=== PATIENT | female | born 1980 | race Caucasian/White ===

== ENCOUNTER → 2018-06-08 | Emergency (ER) | payer MEDICAID, MEDICARE ==
[~2018-06-08] VITALS: Ht 175.3 cm; Wt 81.6 kg
[~2018-06-08] MED LIST: AMOX-355 PO; BUPR150T6 PO; BUPR300T PO; CLON0.5T60 PO; CYCL10TA9 PO; GABA300T PO; HYDR-3062 PO; LVT.05T PO; OMEP20TA2 PO; OXYB5TAB9 PO; POTA10CA43 PO; RISP1TAB2 PO; TRAM50TA2 PO
[2018-06-08 12:20] LABS: BILIRUBIN,URINE NEGATIVE (NEGATIVE); CLARITY,URINE CLEAR; COLOR,URINE YELLOW; GLUCOSE, URINE (UA) NEGATIVE (NEGATIVE); KETONES,URINE NEGATIVE (NEGATIVE); LEUKOCYTE ESTERASE ,URINE NEGATIVE (NEGATIVE); NITRITE,URINE NEGATIVE (NEGATIVE); PROTEIN,URINE NEGATIVE (NEGATIVE); SQUAMOUS EPITHELIAL CELL,UR 0-2 /HPF; UROBILINOGEN,URINE 0.2 MG/DL (NORMAL)
[2018-06-08 12:28] LABS: HEMATOCRIT 43 % (35-52); HEMOGLOBIN 14.5 G/DL (11.5-16.0); LYMPHOCYTES % (AUTO) 26 % (12-44); MEAN CORPUSCULAR HEMOGLOBIN 34 PG (25-34); MEAN CORPUSCULAR HGB CONC 34 G/DL (32-36); MEAN CORPUSCULAR VOLUME 100 FL (80-99); MEAN PLATELET VOLUME 10.7 FL (7.4-10.4); MONOCYTES % (AUTO) 9 % (0-12); NEUTROPHILS % (AUTO) 60 % (42-75); PLATELET COUNT 232 10^3/uL (130-400); RED CELL DISTRIBUTION WIDTH 13.3 % (10.0-14.5); WHITE BLOOD COUNT 6.9 10^3/uL (4.3-11.0)
[2018-06-08 12:29] LABS: BASOPHILS # (AUTO) 0.1 10^3/uL (0.0-0.1); BASOPHILS % (AUTO) 1 % (0-10); EOSINOPHILS # (AUTO) 0.3 10^3/uL (0.0-0.3); EOSINOPHILS % (AUTO) 5 % (0-10); LYMPHOCYTES # (AUTO) 1.8 X 10^3 (1.0-4.0); MONOCYTES # (AUTO) 0.6 X 10^3 (0.0-1.0); NEUTROPHILS # (AUTO) 4.1 X 10^3 (1.8-7.8)
[2018-06-08 12:43] LABS: BENZODIAZEPINES SCREEN URINE NEGATIVE (NEGATIVE); COCAINE SCREEN URINE NEGATIVE (NEGATIVE)
[2018-06-08 12:44] LABS: AMPHETAMINE SCREEN, URINE POSITIVE (NEGATIVE); BARBITURATE SCREEN URINE NEGATIVE (NEGATIVE); CANNABINOID SCREEN, URINE POSITIVE (NEGATIVE); METHADONE STAT NEGATIVE (NEGATIVE); METHAMPHETAMINE SCREEN URINE S POSITIVE (NEGATIVE); OPIATE SCREEN URINE POSITIVE (NEGATIVE); OXYCODONE STAT NEGATIVE (NEGATIVE); PROPOXYPHENE STAT NEGATIVE (NEGATIVE); TRICYCLIC ANTIDEPRESSANTS SCRE NEGATIVE (NEGATIVE)
[2018-06-08 12:54] LABS: BUN/CREATININE RATIO 7; CALCIUM 9.1 MG/DL (8.5-10.1); CARBON DIOXIDE 31 MMOL/L (21-32); CHLORIDE 105 MMOL/L (98-107); CREATININE SERUM 0.91 MG/DL (0.60-1.30); GFR ESTIMATED > 60; GLUCOSE 77 MG/DL (70-105); SODIUM 141 MMOL/L (135-145)
[2018-06-08 12:55] LABS: ACETAMINOPHEN < 10 UG/ML (10-30); ALANINE AMINOTRANSFERASE 11 U/L (0-55); ALBUMIN 4.3 GM/DL (3.2-4.5); ALKALINE PHOSPHATASE 63 U/L (40-136); BILIRUBIN,TOTAL < 0.2 MG/DL (0.1-1.0); SALICYLATE < 0.3 MG/DL (5.0-20.0); TOTAL PROTEIN 7.4 GM/DL (6.4-8.2)
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
--- OUTSIDE RECORDS SUMMARY | 2018-06-08 13:55 | XMS REPORT | Continuity of Care Document ---
Author Author [facility] Organization [facility] Address Unknown Phone Unavailable Allergies Active Description Code Type Severity Reaction Onset Reported/Identified Relationship to Patient Clinical Status Yes No Known Drug Allergies [id number] Drug Allergy Unknown N/A 09/07/2013 Medications There is no data. Problems Date Dx Coded Attending Type Code Diagnosis Diagnosed By 09/14/2013 NARESH WELLINGTON MD Ot 470 09/14/2013 NARESH WELLINGTON MD Ot 478.0 Procedures There is no data. Results There is no data. Encounters ACCT No. Visit Date/Time Discharge Status Pt. Type Provider Facility Loc./Unit Complaint [id number] 09/14/2013 07:02:00 09/14/2013 12:35:00 DIS Outpatient NARESH WELLINGTON MD [facility] [id number] 09/07/2013 08:12:00 09/07/2013 23:59:59 CLS Outpatient
[2018-06-08 14:39] VITALS: BP 136/98
--- NOTE | 2018-06-08 14:41 | NUR ---
PT LEFT THE ED WITHOUT MAKING THE STAFF AWARE. KAYLA, HER BROTHER, WAS CALLED AND HE HAD PICKED HER UP AND TOOK HER HOME. HE STATES HE IS GOING TO STAY WITH HER AND KEEP HER SAFE. VERIFIED WITH TINO VILLEDA WELL MYSELF. JOSE BRUMFIELD SCREENER HERE AT THE TIME OF ELOPEMENT. BRISSA TALKING ON THE PHONE WITH KAYLA, HER BROTHER, AT THIS TIME.
== END | disposition home or self-care (01) ==
LOC: EDUNIT# 11:20 → ER FS 11:22
DX: F32.9 Major depressive disorder, single episode, unspecified (principal); F41.9 Anxiety disorder, unspecified; G40.909 Epilepsy, unspecified, not intractable, without status epilepticus; K21.9 Gastro-esophageal reflux disease without esophagitis; F60.9 Personality disorder, unspecified; F15.10 Other stimulant abuse, uncomplicated; F12.10 Cannabis abuse, uncomplicated; Z87.820 Personal history of traumatic brain injury
CPT/HCPCS: 36415; 80053; 80306; 80320; 80329; 81000; 85025; 93005

== ENCOUNTER 2018-08-30 14:01 | Observation (INO) | payer MEDICARE ==
[~2018-08-30] VITALS: Ht 175.3 cm; Wt 79.4 kg
[2018-08-30 14:30] LABS: WHITE BLOOD COUNT 4.4 10^3/uL (4.3-11.0)
[2018-08-30 14:31] LABS: BASOPHILS % (AUTO) 1 % (0-10); EOSINOPHILS % (AUTO) 3 % (0-10); HEMATOCRIT 43 % (35-52); HEMOGLOBIN 14.9 G/DL (11.5-16.0); LYMPHOCYTES # (AUTO) 1.5 X 10^3 (1.0-4.0); LYMPHOCYTES % (AUTO) 34 % (12-44); MEAN CORPUSCULAR HEMOGLOBIN 34 PG (25-34); MEAN CORPUSCULAR HGB CONC 35 G/DL (32-36); MEAN CORPUSCULAR VOLUME 97 FL (80-99); MEAN PLATELET VOLUME 11.3 FL (7.4-10.4); MONOCYTES % (AUTO) 9 % (0-12); NEUTROPHILS # (AUTO) 2.3 X 10^3 (1.8-7.8); NEUTROPHILS % (AUTO) 53 % (42-75); PLATELET COUNT 157 10^3/uL (130-400); RED CELL DISTRIBUTION WIDTH 12.6 % (10.0-14.5)
--- NOTE | 2018-08-30 14:31 | ED Psychosocial ---
General Chief Complaint: Overdose Stated Complaint: OVERDOSE Source: patient, EMS Exam Limitations: clinical condition History of Present Illness Date Seen by Provider: August 30, 2018 Time Seen by Provider: 14:27 Initial Comments This 38-year-old white female presents after an overdose of buspirone. Patient took approximately 80 for 5 mg tablets 1 hour prior to presentation emergency department. Although the patient is uncooperative she denies ingestion of other material. She denies other harm to self. The paramedics found no other empty pill bottles. They found no recreational drugs. They found no open liquor bottles. They noted no harm to self other than the ingestion. Patient has had similar presentations in the past. She suffered a previous TBI that may contribute to these presentations Allergies and Home Medications Allergies Coded Allergies: No Known Drug Allergies (Unverified , 09/07/13) Home Medications Bupropion Hcl 150 Mg Tab.sr.24h, 1 TAB PO DAILY, (Reported) Bupropion Hcl 300 Mg Tab.sr.24h, 1 TAB PO DAILY, (Reported) Clonazepam 0.5 Mg/Tab Tab.rapdis, 1 EACH PO HS, (Reported) Cyclobenzaprine Hcl 10 Mg Tablet, 1 EACH PO PRN PRN for PAIN, (Reported) Gabapentin 300 Mg Tablet, 1 EACH PO AM, (Reported) Gabapentin 300 Mg Tablet, 2 EACH PO PM, (Reported) Hydrocodone Bit/Acetaminophen 1 Each Tablet, 1-2 EACH PO Q4H PRN for PAIN Prescribed by: CARLA BLEVINS on 09/14/13 1110 Levothyroxine Sodium 50 Mcg Tablet, 1 EACH PO DAILY, (Reported) Omeprazole 20 Mg Tablet.dr, 20 MG PO BID, (Reported) Oxybutynin Chloride 5 Mg Tablet, 1 EACH PO BID, (Reported) Potassium Chloride 10 Meq Capsule.sa, 1 EACH PO DAILY WITH FOOD, (Reported) Risperidone 1 Mg Tablet, 1 MG PO DAILY, (Reported) Tramadol Hcl 50 Mg Tablet, 50 MG PO PRN PRN for PAIN, (Reported) Patient Home Medication List Home Medication List Reviewed: Yes Review of Systems Constitutional: no symptoms reported EENTM: no symptoms reported Respiratory: no symptoms reported Cardiovascular: no symptoms reported Gastrointestinal: no symptoms reported Genitourinary: no symptoms reported Musculoskeletal: no symptoms reported Skin: no symptoms reported Psychiatric/Neurological: No Symptoms Reported Past Gvygitd-Fzyhsf-Fylzcx Hx Past Med/Social Hx: Reviewed Nursing Past Med/Soc Hx Patient Social History Drug of Choice: METH AND MARIJUANA Type Used: Cigarettes 2nd Hand Smoke Exposure: Yes Recent Hopitalizations: No Immunizations Up To Date PED Vaccines UTD: No Date of Pneumonia Vaccine: Apr 12, 2010 Seasonal Allergies Seasonal Allergies: No Past Medical History Surgeries: No Respiratory: No Cardiac: No Neurological: Yes Seizure Disorder, Traumatic Brain Injury Genitourinary: Yes UTI-Chronic Gastrointestinal: Yes Gastroesophageal Reflux Musculoskeletal: Yes Fibromyalgia, Chronic Back Pain Endocrine: No HEENT: No Cancer: No Psychosocial: Yes Personality Disorder, Depression Integumentary: No Blood Disorders: No Adverse Reaction/Blood Tranf: No Physical Exam Capillary Refill : Height, Weight, BMI Height: 5'9.00" Weight: 180lbs. oz. 81.840942yo; BMI Method:Stated General Appearance: WD/WN, no apparent distress Neck: full range of motion, normal inspection Respiratory: lungs clear Cardiovascular: regular rate, rhythm Gastrointestinal: normal bowel sounds, non tender Extremities: normal range of motion, non-tender, normal inspection Neurologic/Psychiatric: no motor/sensory deficits, depressed affect Appearance/Memory: impaired insight Behavior/Eye Contact: cooperative, other (the patient is somnolent but easily roused and able to handle her own airway. Patient is able to offer limited but helpful history.) Thoughts/Hallucinations: no apparent hallucination Skin: normal color, warm/dry Progress/Results/Core Measures Results/Orders Lab Results Laboratory Tests Test 08/30/18 14:15 08/30/18 14:50 Range/Units White Blood Count 4.4 4.3-11.0 10^3/uL Red Blood Count 4.43 4.35-5.85 10^6/uL Hemoglobin 14.9 11.5-16.0 G/DL Hematocrit 43 35-52 % Mean Corpuscular Volume 97 80-99 FL Mean Corpuscular Hemoglobin 34 25-34 PG Mean Corpuscular Hemoglobin Concent 35 32-36 G/DL Red Cell Distribution Width 12.6 10.0-14.5 % Platelet Count 157 130-400 10^3/uL Mean Platelet Volume 11.3 H 7.4-10.4 FL Neutrophils (%) (Auto) 53 42-75 % Lymphocytes (%) (Auto) 34 12-44 % Monocytes (%) (Auto) 9 0-12 % Eosinophils (%) (Auto) 3 0-10 % Basophils (%) (Auto) 1 0-10 % Neutrophils # (Auto) 2.3 1.8-7.8 X 10^3 Lymphocytes # (Auto) 1.5 1.0-4.0 X 10^3 Monocytes # (Auto) 0.4 0.0-1.0 X 10^3 Eosinophils # (Auto) 0.1 0.0-0.3 10^3/uL Basophils # (Auto) 0.0 0.0-0.1 10^3/uL Sodium Level 141 135-145 MMOL/L Potassium Level 2.9 L 3.6-5.0 MMOL/L Chloride Level 102 98-107 MMOL/L Carbon Dioxide Level 22 21-32 MMOL/L Anion Gap 17 H 5-14 MMOL/L Blood Urea Nitrogen 18 7-18 MG/DL Creatinine 1.00 0.60-1.30 MG/DL Estimat Glomerular Filtration Rate > 60 BUN/Creatinine Ratio 18 Glucose Level 106 H 70-105 MG/DL Calcium Level 9.0 8.5-10.1 MG/DL Corrected Calcium 8.8 8.5-10.1 MG/DL Total Bilirubin 0.5 0.1-1.0 MG/DL Aspartate Amino Transf (AST/SGOT) 10 5-34 U/L Alanine Aminotransferase (ALT/SGPT) 9 0-55 U/L Alkaline Phosphatase 56 40-136 U/L Total Protein 7.1 6.4-8.2 GM/DL Albumin 4.2 3.2-4.5 GM/DL Salicylates Level < 0.3 L 5.0-20.0 MG/DL Acetaminophen Level < 10 L 10-30 UG/ML Serum Alcohol < 10 <10 MG/DL My Orders Orders - DANIELLE MERLOS MD Ua Culture If Indicated (08/30/18 14:20) Cbc With Automated Diff (08/30/18 14:20) Comprehensive Metabolic Panel (08/30/18 14:20) Alcohol (08/30/18 14:20) Drug Screen Stat (Urine) (08/30/18 14:20) Acetaminophen (08/30/18 14:20) Salicylate (08/30/18 14:20) Ekg Tracing (08/30/18 14:20) Ed Iv/Invasive Line Start (08/30/18 14:20) Monitor-Rhythm Ecg Trace Only (08/30/18 14:20) Bh Status Checks/Observation Q15M (08/30/18 14:20) Ed Iv/Invasive Line Start (08/30/18 14:20) Ns Iv 1000 Ml (Sodium Chloride 0.9%) (08/30/18 15:15) Potassium Cl 10meq/50ml Ivpb (Kcl 10 Meq (08/30/18 15:15) Potassium Chloride (Tablet) (K Dur Table (08/30/18 15:15) Progress Progress Note : Time: 15:23 Progress Note Patient was observed in the emergency department for approximately 2 hours. During this time the patient remained cooperative. Her laboratory evaluation demonstrated a potassium of 2.9. Supplemental oral and IV potassium was ordered. Telephone consultation was undertaken with poison control who recommended patient be observed on a monitor in the ICU overnight. I consulted with Dr. Singh who was kind enough to accept the patient. Bridge orders have been written and the patient will be transferred to [facility] for observation overnight. Departure Communication (Admissions) Time/Spoke to Admitting Phy: 15:33 Dr. Singh. Impression Primary Impression: Drug overdose Qualified Codes: T50.902A - Poisoning by unspecified drugs, medicaments and biological substances, intentional self-harm, initial encounter Additional Impression: Suicide by drug overdose Qualified Codes: T50.902A - Poisoning by unspecified drugs, medicaments and biological substances, intentional self-harm, initial encounter Disposition: ADMITTED INPATIENT Condition: Improved Admissions Decision to Admit Reason: Admit from ER (General) Decision to Admit/Date: August 30, 2018 Time/Decision to Admit Time: 15:26 Departure-Patient Inst. Referrals: LOUIE CASTRO MD (PCP/Family) Primary Care Physician Patient Instructions: ALCOHOL AND SUBSTANCE ABUSE DANIELLE MERLOS MD August 30, 2018 14:31
[2018-08-30 14:32] LABS: EOSINOPHILS # (AUTO) 0.1 10^3/uL (0.0-0.3); MONOCYTES # (AUTO) 0.4 X 10^3 (0.0-1.0)
--- OUTSIDE RECORDS SUMMARY | 2018-08-30 14:48 | XMS REPORT | Continuity of Care Document ---
Author Organization Unknown Address Unknown Allergies Active Description Code Type Severity Reaction Onset Reported/Identified Relationship to Patient Clinical Status Yes No Known Drug Allergies [id number] Drug Allergy Unknown N/A 09/07/2013 Medications There is no data. Problems Date Dx Coded Attending Type Code Diagnosis Diagnosed By 09/14/2013 AMISH RETANA, NARESH Coulter Ot 470 09/14/2013 NARESH WELLINGTON MD Ot 478.0 06/08/2018 DANIELLE MERLOS MD Ot F12.10 CANNABIS ABUSE, UNCOMPLICATED 06/08/2018 DANIELLE MERLOS MD Ot F15.10 OTHER STIMULANT ABUSE, UNCOMPLICATED 06/08/2018 DANIELLE MERLOS MD Ot F32.9 MAJOR DEPRESSIVE DISORDER, SINGLE EPISOD 06/08/2018 GAURANG RETANA, DANIELLE Kennedy Ot F41.9 ANXIETY DISORDER, UNSPECIFIED 06/08/2018 DANIELLE MERLOS MD Ot F60.9 PERSONALITY DISORDER, UNSPECIFIED 06/08/2018 DANIELLE MERLOS MD Ot G40.909 EPILEPSY, UNSP, NOT INTRACTABLE, WITHOUT 06/08/2018 GAURANG RETANA, DANIELLE Kennedy Ot K21.9 GASTRO-ESOPHAGEAL REFLUX DISEASE WITHOUT 06/08/2018 DANIELLE MERLOS MD Ot R45.851 SUICIDAL IDEATIONS 06/08/2018 GAURANG RETANA, DANIELLE Kennedy Ot Z87.820 PERSONAL HISTORY OF TRAUMATIC BRAIN INJU 06/10/2018 GAURANG RETANA, DANIELLE Kennedy Ot F12.10 CANNABIS ABUSE, UNCOMPLICATED 06/10/2018 DANIELLE MERLOS MD Ot F15.10 OTHER STIMULANT ABUSE, UNCOMPLICATED 06/10/2018 DANIELLE MERLOS MD Ot F32.9 MAJOR DEPRESSIVE DISORDER, SINGLE EPISOD 06/10/2018 DANIELLE MERLOS MD Ot F41.9 ANXIETY DISORDER, UNSPECIFIED 06/10/2018 DANIELLE MERLOS MD Ot F60.9 PERSONALITY DISORDER, UNSPECIFIED 06/10/2018 DANIELLE MERLOS MD Ot G40.909 EPILEPSY, UNSP, NOT INTRACTABLE, WITHOUT 06/10/2018 GAURANG RETANA, DANIELLE Kennedy Ot K21.9 GASTRO-ESOPHAGEAL REFLUX DISEASE WITHOUT 06/10/2018 GAURANG RETANA, DANIELLE Kennedy Ot R45.851 SUICIDAL IDEATIONS 06/10/2018 GAURANG RETANA, DANIELLE Kennedy Ot Z87.820 PERSONAL HISTORY OF TRAUMATIC BRAIN INJU 07/02/2018 GAURANG RETANA, DANIELLE Kennedy Ot F12.10 CANNABIS ABUSE, UNCOMPLICATED 07/02/2018 GAURANG RETANA, DANIELLE Kennedy Ot F15.10 OTHER STIMULANT ABUSE, UNCOMPLICATED 07/02/2018 GAURANG RETANA, DANIELLE Kennedy Ot F32.9 MAJOR DEPRESSIVE DISORDER, SINGLE EPISOD 07/02/2018 GAURANG RETANA, DANIELLE Kennedy Ot F41.9 ANXIETY DISORDER, UNSPECIFIED 07/02/2018 GAURANG RETANA, DANIELLE Kennedy Ot F60.9 PERSONALITY DISORDER, UNSPECIFIED 07/02/2018 GAURANG RETANA, DANIELLE Kennedy Ot G40.909 EPILEPSY, UNSP, NOT INTRACTABLE, WITHOUT 07/02/2018 GAURANG RETANA, DANIELLE Kennedy Ot K21.9 GASTRO-ESOPHAGEAL REFLUX DISEASE WITHOUT 07/02/2018 GAURANG RETANA, DANIELLE Kennedy Ot R45.851 SUICIDAL IDEATIONS 07/02/2018 GAURANG RETANA, DANIELLE Kennedy Ot Z87.820 PERSONAL HISTORY OF TRAUMATIC BRAIN INJU 08/05/2018 OLDS, ELENI E 52 Headache 08/05/2018 OLDS, ELENI E 52 Headache 08/05/2018 OLDS, ELENI E 52 Headache 08/05/2018 OLDS, ELENI E 52 Headache Procedures There is no data. Results Test Result Range Complete urinalysis with reflex to culture - 06/08/18 12:06 Urine color determination YELLOW NRG Urine clarity determination CLEAR NRG Urine pH measurement by test strip 6.0 5-9 Specific gravity of urine by test strip < 1.016-1.022 Urine protein assay by test strip, semi-quantitative NEGATIVE NEGATIVE Urine glucose detection by automated test strip NEGATIVE NEGATIVE Erythrocytes detection in urine sediment by light microscopy NEGATIVE NEGATIVE Urine ketones detection by automated test strip NEGATIVE NEGATIVE Urine nitrite detection by test strip NEGATIVE NEGATIVE Urine total bilirubin detection by test strip NEGATIVE NEGATIVE Urine urobilinogen measurement by automated test strip (mass/volume) 0.2 mg/dL NORMAL Urine leukocyte esterase detection by dipstick NEGATIVE NEGATIVE Automated urine sediment erythrocyte count by microscopy (number/high power field) NONE NRG Automated urine sediment leukocyte count by microscopy (number/high power field) NONE NRG Bacteria detection in urine sediment by light microscopy NONE NRG Squamous epithelial cells detection in urine sediment by light microscopy 0-2 NRG Crystals detection in urine sediment by light microscopy NONE NRG Casts detection in urine sediment by light microscopy NONE NRG Mucus detection in urine sediment by light microscopy NEGATIVE NRG Complete urinalysis with reflex to culture NO NRG Urine drug screening test - 06/08/18 12:06 Urine phencyclidine detection by screening method NEGATIVE NEGATIVE Urine benzodiazepines detection by screening method NEGATIVE NEGATIVE Urine cocaine detection NEGATIVE NEGATIVE Urine amphetamines detection by screening method POSITIVE NEGATIVE Urine methamphetamine detection by screening method POSITIVE NEGATIVE Urine cannabinoids detection by screening method POSITIVE NEGATIVE Urine opiates detection by screening method POSITIVE NEGATIVE Urine barbiturates detection NEGATIVE NEGATIVE Screening urine tricyclic antidepressants detection NEGATIVE NEGATIVE Urine methadone detection by screening method NEGATIVE NEGATIVE Urine oxycodone detection NEGATIVE NEGATIVE Urine propoxyphene detection NEGATIVE NEGATIVE Complete blood count (CBC) with automated white blood cell (WBC) differential - 06/08/18 12:07 Blood leukocytes automated count (number/volume) 6.9 10*3/uL 4.3-11.0 Blood erythrocytes automated count (number/volume) 4.32 10*6/uL 4.35-5.85 Venous blood hemoglobin measurement (mass/volume) 14.5 g/dL 11.5-16.0 Blood hematocrit (volume fraction) 43 % 35-52 Automated erythrocyte mean corpuscular volume 100 [foz_us] 80-99 Automated erythrocyte mean corpuscular hemoglobin (mass per erythrocyte) 34 pg 25-34 Automated erythrocyte mean corpuscular hemoglobin concentration measurement (mass/volume) 34 g/dL 32-36 Automated erythrocyte distribution width ratio 13.3 % 10.0- 14.5 Automated blood platelet count (count/volume) 232 10*3/uL 130-400 Automated blood platelet mean volume measurement 10.7 [foz_us] 7.4-10.4 Automated blood neutrophils/100 leukocytes 60 % 42-75 Automated blood lymphocytes/100 leukocytes 26 % 12-44 Blood monocytes/100 leukocytes 9 % 0-12 Automated blood eosinophils/100 leukocytes 5 % 0-10 Automated blood basophils/100 leukocytes 1 % 0-10 Blood neutrophils automated count (number/volume) 4.1 10*3 1.8-7.8 Blood lymphocytes automated count (number/volume) 1.8 10*3 1.0-4.0 Blood monocytes automated count (number/volume) 0.6 10*3 0.0- 1.0 Automated eosinophil count 0.3 10*3/uL 0.0-0.3 Automated blood basophil count (count/volume) 0.1 10*3/uL 0.0-0.1 Comprehensive metabolic panel - 06/08/18 12:07 Serum or plasma sodium measurement (moles/volume) 141 mmol/L 135-145 Serum or plasma potassium measurement (moles/volume) 3.0 mmol/L 3.6-5.0 Serum or plasma chloride measurement (moles/volume) 105 mmol/L 98-107 Carbon dioxide 31 mmol/L 21-32 Serum or plasma anion gap determination (moles/volume) 5 mmol/L 5-14 Serum or plasma urea nitrogen measurement (mass/volume) 6 mg/dL 7-18 Serum or plasma creatinine measurement (mass/volume) 0.91 mg/dL 0.60-1.30 Serum or plasma urea nitrogen/creatinine mass ratio 7 NRG Serum or plasma creatinine measurement with calculation of estimated glomerular filtration rate > NRG Serum or plasma glucose measurement (mass/volume) 77 mg/dL 70-105 Serum or plasma calcium measurement (mass/volume) 9.1 mg/dL 8.5-10.1 Serum or plasma total bilirubin measurement (mass/volume) < mg/dL 0.1-1.0 Serum or plasma alkaline phosphatase measurement (enzymatic activity/volume) 63 U/L 40-136 Serum or plasma aspartate aminotransferase measurement (enzymatic activity/volume) 10 U/L 5-34 Serum or plasma alanine aminotransferase measurement (enzymatic activity/volume) 11 U/L 0-55 Serum or plasma protein measurement (mass/volume) 7.4 g/dL 6.4-8.2 Serum or plasma albumin measurement (mass/volume) 4.3 g/dL 3.2-4.5 CALCIUM CORRECTED 8.9 mg/dL 8.5-10.1 Serum or plasma salicylates measurement (mass/volume) - 06/08/18 12:07 Serum or plasma salicylates measurement (mass/volume) < mg/dL 5.0-20.0 Serum or plasma acetaminophen measurement (mass/volume) - 06/08/18 12:07 Serum or plasma acetaminophen measurement (mass/volume) < ug/mL 10-30 Serum or plasma ethanol measurement (mass/volume) - 06/08/18 12:07 Serum or plasma ethanol measurement (mass/volume) < mg/dL <10 Encounters ACCT No. Visit Date/Time Discharge Status Pt. Type Provider Facility Loc./Unit Complaint [id number] 08/05/2018 12:44:20 08/05/2018 23:59:59 CLS Outpatient [facility] Headache [id number] 06/08/2018 11:22:00 06/08/2018 14:39:00 DIS Emergency GAURANG RETANA, DANIELLE Kennedy [facility] ER FS PSYCH EVAL [id number] 09/14/2013 07:02:00 09/14/2013 12:35:00 DIS Outpatient AMISH RETANA, NARESH Coulter [facility] [id number] 09/07/2013 08:12:00 09/07/2013 23:59:59 CLS Outpatient [id number] 08/22/2018 17:00:00 08/22/2018 23:59:59 CLS Outpatient STEFFI HERNANDES [facility]
[2018-08-30 14:52] LABS: CARBON DIOXIDE 22 MMOL/L (21-32); CHLORIDE 102 MMOL/L (98-107); POTASSIUM 2.9 MMOL/L (3.6-5.0); SODIUM 141 MMOL/L (135-145)
[2018-08-30 14:53] LABS: ALANINE AMINOTRANSFERASE 9 U/L (0-55); ALBUMIN 4.2 GM/DL (3.2-4.5); ALKALINE PHOSPHATASE 56 U/L (40-136); BILIRUBIN,TOTAL 0.5 MG/DL (0.1-1.0); BUN/CREATININE RATIO 18; GFR ESTIMATED > 60; GLUCOSE 106 MG/DL (70-105); SALICYLATE < 0.3 MG/DL (5.0-20.0); TOTAL PROTEIN 7.1 GM/DL (6.4-8.2)
[2018-08-30 14:54] LABS: ACETAMINOPHEN < 10 UG/ML (10-30)
[2018-08-30 15:14] LABS: CLARITY,URINE CLOUDY; COLOR,URINE YELLOW; GLUCOSE, URINE (UA) NEGATIVE (NEGATIVE); PROTEIN,URINE 1+ (NEGATIVE)
[2018-08-30 15:15] LABS: BACTERIA,URINE MODERATE /HPF; BILIRUBIN,URINE 2+ (NEGATIVE); KETONES,URINE 2+ (NEGATIVE); LEUKOCYTE ESTERASE ,URINE 1+ (NEGATIVE); NITRITE,URINE NEGATIVE (NEGATIVE); SQUAMOUS EPITHELIAL CELL,UR >50 /HPF
[2018-08-30] MEDS ORDERED: KCL 20 MEQ TAB (K-DUR) PO ONE (15:15)
[2018-08-30] MEDS ORDERED: NS IV 1000 ML 1,000 ML IV SCH (15:15)
[2018-08-30 15:19] LABS: AMPHETAMINE SCREEN, URINE POSITIVE (NEGATIVE); BARBITURATE SCREEN URINE NEGATIVE (NEGATIVE); BENZODIAZEPINES SCREEN URINE POSITIVE (NEGATIVE); CANNABINOID SCREEN, URINE NEGATIVE (NEGATIVE); COCAINE SCREEN URINE NEGATIVE (NEGATIVE); METHADONE STAT NEGATIVE (NEGATIVE); METHAMPHETAMINE SCREEN URINE S POSITIVE (NEGATIVE); OPIATE SCREEN URINE NEGATIVE (NEGATIVE); OXYCODONE STAT NEGATIVE (NEGATIVE); PROPOXYPHENE STAT NEGATIVE (NEGATIVE); TRICYCLIC ANTIDEPRESSANTS SCRE NEGATIVE (NEGATIVE)
[2018-08-30] MEDS: POTASSIUM CL 10MEQ/50ML IVPB 50 ML IV SCH ×2 (15:33→16:23)
--- NOTE | 2018-08-30 15:45 | NUR ---
STEFANIE SPARKS admitted to room CU1-1, with an admitting diagnosis of overdose, on 08/30/18 from AM via cart, accompanied by staff.STEFANIE SPARKS introduced to surroundings, call light, bed controls, phone, TV, temperature control, lights, meal times, smoking policy, visitor policy, side rail policy, bathrooms and showers. Patient Rights given to patient in the handbook. STEFANIE SPARKS verbalizes understanding that [facility] is not responsible for the loss or damage to any personal effects or valuables that are kept in the patients posession during their hospitalization. The following Patient Care Plans were discussed with the pt: Discharge Planning. STEFANIE SPARKS verbalizes understanding of Interdisciplinary Patient Education. Patient and/or family were informed about the Rapid Response Team and its purpose.
--- OUTSIDE RECORDS SUMMARY | 2018-08-30 16:09 | XMS REPORT | Continuity of Care Document ---
Author Organization Unknown Address Unknown Allergies Active Description Code Type Severity Reaction Onset Reported/Identified Relationship to Patient Clinical Status Yes No Known Drug Allergies [id number] Drug Allergy Unknown N/A 09/07/2013 Medications There [...] OF TRAUMATIC BRAIN INJU 06/10/2018 GAURANG RETANA, DANILELE Kennedy Ot F12.10 CANNABIS ABUSE, UNCOMPLICATED 06/10/2018 [...] Status Pt. Type Provider Facility Loc./Unit Complaint [id number] 08/05/2018 12:44:20 08/05/2018 23:59:59 CLS Outpatient [facility] Headache [id number] 06/08/2018 11:22:00 06/08/2018 14:39:00 DIS Emergency GAURANG RETANA, DANIELLE Kennedy [facility] ER FS PSYCH EVAL [id number] 09/14/2013 07:02:00 09/14/2013 12:35:00 DIS Outpatient AMISH RETANA, NARESH Coulter [facility] [id number] 09/07/2013 08:12:00 09/07/2013 23:59:59 CLS Outpatient [id number] 08/22/2018 17:00:00 08/22/2018 23:59:59 CLS Outpatient STEFFI HERNANDES [facility]
[2018-08-30] MEDS ORDERED: CATHETER FLUSH 10 ML SYR IV PRN (18:00)
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
[2018-08-30] MEDS: NS W/KCL 20 MEQ/L 1,000 ML IV SCH (18:42)
[2018-08-30 19:00] VITALS: BP 114/75
[2018-08-30 20:00] VITALS: BP 109/65
[2018-08-30 21:00] VITALS: BP 110/72
[2018-08-30 22:00] VITALS: BP 105/63
[2018-08-30 23:00] VITALS: BP 105/63
[2018-08-31] VITALS (11 sets, daily range): BP systolic 96–146; BP diastolic 53–95
--- NOTE | 2018-08-31 00:54 | NUR ---
Update given to Poison control at this time.
[2018-08-31 03:22] LABS: BASOPHILS % (AUTO) 0 % (0-10); EOSINOPHILS # (AUTO) 0.2 10^3/uL (0.0-0.3); EOSINOPHILS % (AUTO) 3 % (0-10); HEMATOCRIT 38 % (35-52); HEMOGLOBIN 13.1 G/DL (11.5-16.0); LYMPHOCYTES # (AUTO) 2.1 X 10^3 (1.0-4.0); LYMPHOCYTES % (AUTO) 36 % (12-44); MEAN CORPUSCULAR HEMOGLOBIN 33 PG (25-34); MEAN CORPUSCULAR HGB CONC 35 G/DL (32-36); MEAN CORPUSCULAR VOLUME 96 FL (80-99); MEAN PLATELET VOLUME 11.8 FL (7.4-10.4); MONOCYTES # (AUTO) 0.6 X 10^3 (0.0-1.0); MONOCYTES % (AUTO) 10 % (0-12); NEUTROPHILS % (AUTO) 50 % (42-75); PLATELET COUNT 159 10^3/uL (130-400); RED CELL DISTRIBUTION WIDTH 12.8 % (10.0-14.5); WHITE BLOOD COUNT 5.9 10^3/uL (4.3-11.0)
[2018-08-31 03:47] LABS: ALANINE AMINOTRANSFERASE 11 U/L (0-55); ALBUMIN 3.4 GM/DL (3.2-4.5); ALKALINE PHOSPHATASE 43 U/L (40-136); BILIRUBIN,TOTAL 0.3 MG/DL (0.1-1.0); BUN/CREATININE RATIO 20; CALCIUM 8.3 MG/DL (8.5-10.1); CARBON DIOXIDE 19 MMOL/L (21-32); CHLORIDE 113 MMOL/L (98-107); CREATININE SERUM 0.86 MG/DL (0.60-1.30); GFR ESTIMATED > 60; GLUCOSE 117 MG/DL (70-105); MAGNESIUM 1.7 MG/DL (1.8-2.4); POTASSIUM 3.4 MMOL/L (3.6-5.0); SODIUM 141 MMOL/L (135-145); TOTAL PROTEIN 5.6 GM/DL (6.4-8.2)
[2018-08-31] MEDS: NS W/KCL 20 MEQ/L 1,000 ML IV SCH ×2 (04:51→16:11)
[2018-08-31] MEDS: MAGNESIUM 1 GM/100 ML IVPB 100 ML IV SCH ×2 (05:52→06:58)
[2018-08-31] MEDS ORDERED: POTASSIUM CL 10MEQ/50ML IVPB 50 ML IV SCH ×2 (06:00)
[2018-08-31] MEDS ORDERED: MAGNESIUM 1 GM/100 ML IVPB 100 ML IV SCH ×2 (06:00)
[2018-08-31] MEDS ORDERED: KCL 20 MEQ TAB (K-DUR) PO SCH ×2 (06:00)
[2018-08-31] MEDS ORDERED: KCL 20 MEQ TAB (K-DUR) PO ONE (09:00)
--- NOTE | 2018-08-31 10:02 | NUR ---
CM/SS responded to consult for SS. Patient overdosed intentionally on her medications. She discussed that her dad on 08/08 due to end stage liver failure and that her daughter is recently back in her home after living with her sister for 2yrs. Patient states that in June she had a previous suicide attempt and put something around her neck. At that time she went to [facility] for 5 [facility]. Patient states that she is not having suicidal thoughts now and is not wanting to go to inpatient [facility]. She sees Vandana Laguerre in [place] for A/D counseling, she has no outpatient MH counseling. She also stated that she has a TBI from 11yrs ago this day. SHILPA Waite has been called and will be out to assess the patient this day.
[2018-08-31] MEDS ORDERED: PANT40TA3 PO (10:50)
[2018-08-31] MEDS ORDERED: FOLI1TAB24 PO (10:50)
[2018-08-31] MEDS ORDERED: BUSP5TAB59 PO (10:50)
[2018-08-31] MEDS ORDERED: LEVO50TA6 PO (10:50)
[2018-08-31] MEDS ORDERED: CITA40TA11 PO (10:50)
[2018-08-31] MEDS ORDERED: PRAZ1CAP2 PO (10:50)
[2018-08-31] MEDS ORDERED: TOPI100T11 PO (10:54)
[2018-08-31] MEDS ORDERED: CYAN10006 PO (10:54)
[2018-08-31] MEDS ORDERED: OXYB5TAB9 PO (10:54)
--- NOTE | 2018-08-31 10:54 | NUR ---
WENT OVER THE EXT MED HX WITH THE PATIENT AND SHE VERIFIED HOW SHE TAKES EACH MEDICATION. SHE STATES SHE ALSO TAKES VITAMIN B12 OTC DAILY.
--- NOTE | 2018-08-31 11:06 | Short Stay Summary-Hospitalist ---
History of Present Illness HPI/Chief Complaint Chief complaint: Overdose of Buspar HPI: This is a 38yoWF with a past medical history of traumatic brain injury, depression and anxiety who presents after a Buspar overdose due to suicide attempt. She reports she no longer feel suicidal. Her father recently and her daughter just left to spend the summer with her father so her stressors are now diminished and we will call [facility] and be able to discharge her today hopefully. Source: patient Exam Limitations: no limitations Date Seen 08/31/18 Time Seen by a Provider: 09:00 Attending Physician Francis Singh MD PCP SelfMontez MD Referring Physician Date of Admission August 30, 2018 at 16:04 Home Medications & Allergies Home Medications Reviewed patient Home Medication Reconciliation performed by pharmacy medication reconciliations quick service technician and/or nursing. Patients Allergies have been reviewed. Allergies Allergies Coded Allergies No Known Drug Allergies (Unverified09/07/13) Past Kqzpdtl-Ihyoma-Jgyypw Hx Past Med/Social Hx: Reviewed Nursing Past Med/Soc Hx, Reviewed and Corrections made Patient Social History Marrital Status: single Employed/Student: unemployed Alcohol Use: Occasionally Uses Recreational Drug Use: Yes Drug of Choice: METH AND MARIJUANA Smoking Status: Current Everyday Smoker Type Used: Cigarettes 2nd Hand Smoke Exposure: Yes Recent Foreign Travel: No Contact w/other who traveled: No Recent Hopitalizations: No Recent Infectious Disease Expo: No Immunizations Up To Date Pediatric: No Date of Pneumonia Vaccine: May 17, 2018 Seasonal Allergies Seasonal Allergies: No Past Medical History Neurological: Seizure Disorder, Traumatic Brain Injury : No Genitourinary: UTI-Chronic Gastrointestinal: Gastroesophageal Reflux Musculoskeletal: Fibromyalgia, Chronic Back Pain Psychosocial: Personality Disorder, Depression History of Blood Disorders: No Adverse Reaction to Blood Sanchez: No Review of Systems Constitutional: see HPI Psychiatric/Neurological: Anxiety, Depressed Physical Exam Physical Exam Vital Signs Vital Signs - First Documented 08/30/18 14:01 Temp 98.4 Pulse 78 Resp 18 B/P (MAP) 124/54 (77) Pulse Ox 95 O2 Delivery Room Air Capillary Refill : Less Than 3 Seconds Height, Weight, BMI Height: 5'9.00" Weight: 175lbs. 2.0oz. 79.693851aw; 26.3 BMI Method:Stated General Appearance: No Apparent Distress, WD/WN, Chronically ill Eyes: Bilateral Eye Normal Inspection, Bilateral Eye PERRL HEENT: PERRL/EOMI, TMs Normal, Normal ENT Inspection, Pharynx Normal Neck: Full Range of Motion, Normal Inspection, Non Tender, Supple, Carotid Bruit Respiratory: Chest Non Tender, Lungs Clear, Normal Breath Sounds, No Accessory Muscle Use, No Respiratory Distress Cardiovascular: Regular Rate, Rhythm, No Edema, No Gallop, No JVD, No Murmur, Normal Peripheral Pulses Gastrointestinal: Normal Bowel Sounds, No Organomegaly, No Pulsatile Mass, Non Tender, Soft Back: Normal Inspection, No CVA Tenderness, No Vertebral Tenderness Extremity: Normal Capillary Refill, Normal Inspection, Normal Range of Motion, Non Tender, No Calf Tenderness, No Pedal Edema Neurologic/Psychiatric: Alert, Oriented x3, No Motor/Sensory Deficits, Normal Mood/Affect Skin: Normal Color, Warm/Dry Lymphatic: No Adenopathy Results Results/Procedures Labs Laboratory Tests 08/30/18 14:15 08/31/18 02:55 Patient resulted labs reviewed. Short Stay Diagnosis Discharge Diagnosis-Short Stay Admission Diagnosis Assessment: OD of Buspar TBI Anxiety Depression Final Discharge Diagnosis Assessment: OD of Buspar TBI Anxiety Depression Conclusion Plan DC home Close psych f/u Clinical Quality Measures DVT/VTE Risk/Contraindication: Risk Factor Score Per Nursin RFS Level Per Nursing on Admit: 1=Low/No VTE PPX PATRICK RUIZ DO August 31, 2018 11:05
--- NOTE | 2018-08-31 12:14 | NUR ---
Pt is Anglican. Health Unit Coordinator provided prayer and Communion.
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
[2018-08-31] MEDS ORDERED: NON-FORMULARY MEDICATION 1 EA EA (Prazosin HCl 1 MG) PO SCH (21:00)
[2018-08-31] MEDS ORDERED: toPIRamate 100 MG (TOPAMAX) TAB PO SCH (21:00)
[2018-08-31] MEDS ORDERED: OXYBUTYNIN (DITROPAN) 5 MG TAB PO SCH (21:00)
[2018-08-31] MEDS ORDERED: FOLIC ACID 1 MG TAB PO SCH (21:00)
[2018-09-01] MEDS ORDERED: CYANOCOBALAMIN 1,000 MCG (VITAMIN B-12) TABLET PO SCH (09:00)
[2018-09-01] MEDS ORDERED: LEVOTHYROXINE 50 MCG (LEVOTHROID) TAB PO SCH (09:00)
[2018-09-01] MEDS ORDERED: PANTOPRAZOLE 40 MG (PROTONIX) TAB PO SCH (09:00)
== END 2018-08-31 16:25 | disposition home or self-care (01) ==
LOC: ER FS 14:01 → ICU 16:04
PROVIDERS: ADMIT Internal Medicine; ATTEND Internal Medicine
DX: T43.592A Poisoning by other antipsychotics and neuroleptics, intentional self-harm, initial encounter (principal); F32.9 Major depressive disorder, single episode, unspecified; F41.9 Anxiety disorder, unspecified; G40.909 Epilepsy, unspecified, not intractable, without status epilepticus; K21.9 Gastro-esophageal reflux disease without esophagitis; F60.9 Personality disorder, unspecified; F15.10 Other stimulant abuse, uncomplicated; Z87.820 Personal history of traumatic brain injury; Z79.899 Other long term (current) drug therapy
CPT/HCPCS: 36415; 80053; 80306; 80320; 80329; 81000; 83735; 85025; 93005; 93041; G0378

== ENCOUNTER 2018-12-12 10:40 | Emergency (ER) | payer MEDICARE ==
[~2018-12-12] VITALS: Ht 175.3 cm; Wt 83.9 kg
[~2018-12-12 10:40] MED LIST changes: +BUSP5TAB59 PO; +CITA40TA11 PO; +CYAN-41 PO; +FOLI1TAB24 PO; +LEVO50TA6 PO; +PANT40TA3 PO; +PRAZ1CAP2 PO; +TOPI100T11 PO
[2018-12-12 10:50] VITALS: BP 111/85
[2018-12-12] MEDS ORDERED: LIDOCAINE 1% INJ 20 ML 20 ML VIAL INJ ONE (11:30)
[2018-12-12] MEDS ORDERED: cefTRIAXone 1,000 MG/2.86 ml vial (IM ONLY) IM ONE (11:30)
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
--- NOTE | 2018-12-12 12:03 | NUR ---
Entered patient room to give antibiotic shot and room is empty. bingo clerk states patient was yelling on phone and left the building. Patients daughter stated she did not think the patient is coming back.
[2018-12-12] MEDS ORDERED: SULF1TAB35 PO (14:41)
== END 2018-12-12 12:04 | disposition left against medical advice (07) ==
LOC: EDUNIT# 10:40 → ER FS 10:41
DX: L03.317 Cellulitis of buttock (principal); L02.31 Cutaneous abscess of buttock; G40.909 Epilepsy, unspecified, not intractable, without status epilepticus; K21.9 Gastro-esophageal reflux disease without esophagitis; M79.7 Fibromyalgia; F32.9 Major depressive disorder, single episode, unspecified; F60.9 Personality disorder, unspecified; F17.210 Nicotine dependence, cigarettes, uncomplicated; Z87.820 Personal history of traumatic brain injury
CPT/HCPCS: 99283

== ENCOUNTER 2019-05-20 14:07 | Emergency (ER) | payer MEDICARE ==
[~2019-05-20] VITALS: Ht 175.3 cm; Wt 89.9 kg
[~2019-05-20 14:07] MED LIST changes: +OXYB5TAB13 PO; +SULF1TAB35 PO
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
[2019-05-20 15:16] LABS: BACTERIA,URINE NEGATIVE /HPF; BILIRUBIN,URINE NEGATIVE (NEGATIVE); CLARITY,URINE CLOUDY; COLOR,URINE YELLOW; GLUCOSE, URINE (UA) NEGATIVE (NEGATIVE); KETONES,URINE NEGATIVE (NEGATIVE); LEUKOCYTE ESTERASE ,URINE NEGATIVE (NEGATIVE); NITRITE,URINE NEGATIVE (NEGATIVE); PH,URINE 7.5 (5-9); PROTEIN,URINE NEGATIVE (NEGATIVE)
[2019-05-20 15:17] LABS: AMORPHOUS SEDIMENT,UR LARGE AMOR PHOSPHATE /LPF; HCG,QUALITATIVE URINE NEGATIVE (NEGATIVE)
[2019-05-20] MEDS ORDERED: CEPH-507 PO (15:29)
[2019-05-20] MEDS ORDERED: ONDA4TAB11 PO (15:33)
[2019-05-20 15:35] VITALS: BP 141/98
--- NOTE | 2019-05-20 16:59 | Diagnostic Imaging Report ---
INDICATION: Bilateral breast congestion. Bilateral breast pain, dizziness. EXAMINATION: Single view of the chest from 05/20/2019. FINDINGS: The cardiomediastinal silhouette is unremarkable. The pulmonary vasculature is within normal limits. The lungs and pleural spaces are clear. IMPRESSION: No evidence of an acute cardiopulmonary process. Dictated by: Dictated on workstation # [id number]
== END 2019-05-20 15:40 | disposition home or self-care (01) ==
LOC: EDUNIT# 14:07 → ER FS 14:09
DX: J40 Bronchitis, not specified as acute or chronic (principal); G40.909 Epilepsy, unspecified, not intractable, without status epilepticus; F32.9 Major depressive disorder, single episode, unspecified; K21.9 Gastro-esophageal reflux disease without esophagitis; Z77.22 Contact with and (suspected) exposure to environmental tobacco smoke (acute) (chronic); Z87.820 Personal history of traumatic brain injury
CPT/HCPCS: 71045; 81000; 84703; 87804

== ENCOUNTER 2019-05-22 16:27 | Emergency (ER) | payer MEDICARE, MEDICAID ==
[~2019-05-22] VITALS: Ht 175 cm; Wt 89.0 kg
[~2019-05-22 16:27] MED LIST changes: +CEPH-507 PO; +ONDA4TAB11 PO
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
--- NOTE | 2019-05-22 16:50 | Diagnostic Imaging Report ---
INDICATION: Wrist pain. TECHNIQUE: Three views were obtained. FINDINGS: The alignment is normal. There is no fracture or dislocation. The soft tissues are unremarkable. IMPRESSION: No acute fracture or dislocation. Dictated by: Dictated on workstation # [id number]
[2019-05-22 17:06] VITALS: BP 137/99
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
== END 2019-05-22 17:07 | disposition home or self-care (01) ==
LOC: EDUNIT# 16:27 → ER FS 16:29
DX: S63.502A Unspecified sprain of left wrist, initial encounter (principal); F32.9 Major depressive disorder, single episode, unspecified; G40.909 Epilepsy, unspecified, not intractable, without status epilepticus; K21.9 Gastro-esophageal reflux disease without esophagitis; Z77.22 Contact with and (suspected) exposure to environmental tobacco smoke (acute) (chronic); Z87.820 Personal history of traumatic brain injury; X50.0XXA Overexertion from strenuous movement or load, initial encounter
CPT/HCPCS: 73110

== ENCOUNTER → 2020-03-29 | Outpatient (CLI) | payer MEDICARE, MEDICAID ==
[~2020-03-29] MED LIST changes: -PANT40TA3 PO; +PANT40TA52 PO
--- NOTE | 2020-03-29 14:59 | Diagnostic Imaging Report ---
EXAMINATION: CT abdomen and pelvis without contrast. TECHNIQUE: Multiple contiguous axial images were obtained through the abdomen and pelvis without the use of intravenous contrast. All CT scans use one or more of the following dose optimizing techniques: automated exposure control, MA and/or KvP adjustment based on patient size and exam type or iterative reconstruction. HISTORY: Left lower quadrant pain. COMPARISON: None available. FINDINGS: Limited views of the lower thorax are unremarkable. The liver is normal without focal lesion. There is no biliary ductal dilation. Gallbladder is surgically absent. Pancreas is normal. Spleen is normal. Adrenal glands are normal. There is a 2 mm nonobstructing left lower pole renal stone. Kidneys are otherwise normal. There is no hydronephrosis. Urinary bladder is normal. Visualized bowel is normal in caliber without obstruction or inflammation. No free fluid or air. No abdominal or pelvic lymphadenopathy. Aorta is normal in caliber without aneurysm. There are no suspicious osseus lesions. IMPRESSION: No acute abnormality in the abdomen or pelvis. Dictated by: Dictated on workstation # [id number]
== END ==
LOC: RAD FS 14:18
PROVIDERS: ATTEND Surgery
DX: R10.32 Left lower quadrant pain (principal)
CPT/HCPCS: 74176

== ENCOUNTER 2021-05-10 20:31 | Emergency (ER) | payer MEDICARE, MEDICAID ==
[~2021-05-10 20:31] MED LIST changes: -CITA40TA11 PO; +CITA40TA13 PO; -FOLI1TAB24 PO; +FOLI1TAB33 PO; -SULF1TAB35 PO; +SULF1TAB38 PO
[2021-05-10] MEDS ORDERED: KETOROLAC 60 MG/2 ML VIAL IM STA (20:41)
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
[2021-05-10] MEDS ORDERED: MELO7.5T46 PO (20:54)
--- NOTE | 2021-05-10 21:05 | Diagnostic Imaging Report ---
CLINICAL HISTORY: Fall. Tailbone pain. COMPARISON: 03/29/2020. TECHNIQUE: 3 views of the sacrum and coccyx. FINDINGS: There is no acute fracture or dislocation of the sacrum and coccyx. Alignment is anatomic. The bilateral SI joints demonstrate normal alignment. The pubic symphysis is intact. IMPRESSION: No acute fracture or dislocation in the sacrum or coccyx. Dictated by: Dictated on workstation # [id number]
[2021-05-10 21:43] VITALS: BP 179/132
== END 2021-05-10 21:44 | disposition home or self-care (01) ==
LOC: EDUNIT# 20:31 → ER FS 20:32
DX: S30.0XXA Contusion of lower back and pelvis, initial encounter (principal); F32.9 Major depressive disorder, single episode, unspecified; E03.9 Hypothyroidism, unspecified; F60.9 Personality disorder, unspecified; M79.7 Fibromyalgia; K21.9 Gastro-esophageal reflux disease without esophagitis; G40.909 Epilepsy, unspecified, not intractable, without status epilepticus; F17.210 Nicotine dependence, cigarettes, uncomplicated; Z79.890 Hormone replacement therapy; Z79.899 Other long term (current) drug therapy; W01.0XXA Fall on same level from slipping, tripping and stumbling without subsequent striking against object, initial encounter
CPT/HCPCS: 72220

== ENCOUNTER 2021-08-04 13:37 | Emergency (ER) | payer MEDICARE, MEDICAID ==
[~2021-08-04 13:37] MED LIST changes: +MELO7.5T46 PO
[2021-08-04 14:00] LABS: BASOPHILS # (AUTO) 0.1 10^3/uL (0.0-0.1); BASOPHILS % (AUTO) 1 % (0-10); EOSINOPHILS # (AUTO) 0.3 10^3/uL (0.0-0.3); EOSINOPHILS % (AUTO) 6 % (0-10); HEMATOCRIT 42 % (35-52); HEMOGLOBIN 14.6 g/dL (11.5-16.0); LYMPHOCYTES # (AUTO) 1.6 10^3/uL (1.0-4.0); LYMPHOCYTES % (AUTO) 28 % (12-44); MEAN CORPUSCULAR HEMOGLOBIN 33 pg (25-34); MEAN CORPUSCULAR HGB CONC 35 g/dL (32-36); MEAN CORPUSCULAR VOLUME 95 fL (80-99); MEAN PLATELET VOLUME 10.8 fL (9.0-12.2); MONOCYTES # (AUTO) 0.5 10^3/uL (0.0-1.0); MONOCYTES % (AUTO) 9 % (0-12); NEUTROPHILS # (AUTO) 3.2 10^3/uL (1.8-7.8); NEUTROPHILS % (AUTO) 57 % (42-75); PLATELET COUNT 218 10^3/uL (130-400); WHITE BLOOD COUNT 5.7 10^3/uL (4.3-11.0)
[2021-08-04] MEDS ORDERED: fentaNYL INJ 100 MCG/2 ML AMP IVP STA (14:05)
[2021-08-04] MEDS ORDERED: NS IV 1000 ML 1,000 ML IV STA (14:05)
[2021-08-04] MEDS ORDERED: ONDANSETRON 4 MG/2 ML (SDV) Z0FRAN IVP STA (14:05)
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
[2021-08-04] MEDS ORDERED: NS 100 ML (IVPB) BAG IV ONE (14:15)
[2021-08-04] MEDS ORDERED: IOHEXOL 350 MG/ML 100 ML (OMNIPAQUE 350) VIAL IV ONE (14:15)
[2021-08-04] MEDS ORDERED: HOLD METFORMIN - RECEIVED CONTRAST 20 ML VIAL IV SCH (14:15)
[2021-08-04 14:17] LABS: BILIRUBIN,TOTAL 0.3 MG/DL (0.1-1.0); CALCIUM 9.5 MG/DL (8.5-10.1); CREATININE SERUM 0.85 MG/DL (0.60-1.30); TOTAL PROTEIN 7.1 GM/DL (6.4-8.2)
[2021-08-04 14:18] LABS: ALBUMIN 4.4 GM/DL (3.2-4.5)
[2021-08-04 14:26] LABS: SMEAR SCAN COMMENT OK
[2021-08-04 14:31] LABS: BILIRUBIN,URINE NEGATIVE (NEGATIVE); CLARITY,URINE CLEAR; COLOR,URINE YELLOW; GLUCOSE, URINE (UA) NEGATIVE (NEGATIVE); KETONES,URINE NEGATIVE (NEGATIVE); LEUKOCYTE ESTERASE ,URINE NEGATIVE (NEGATIVE); NITRITE,URINE NEGATIVE (NEGATIVE); PH,URINE 6.5 (5-9); PROTEIN,URINE NEGATIVE (NEGATIVE)
[2021-08-04 14:36] LABS: BACTERIA,URINE NEGATIVE /HPF; SQUAMOUS EPITHELIAL CELL,UR 0-2 /HPF; WBC,URINE RARE /HPF
--- NOTE | 2021-08-04 14:40 | Diagnostic Imaging Report ---
INDICATION: Right lower quadrant pain x 3 months. TECHNIQUE: Multiple contiguous axial images were obtained through the abdomen and pelvis after administration of intravenous contrast. Auto Exposure Controls were utilized during the CT exam to meet ALARA standards for radiation dose reduction. All CT scans use one or more of the following dose optimizing techniques: automated exposure control, MA and/or KvP adjustment based on patient size and exam type or iterative reconstruction. COMPARISON: Prior CT of 03/29/2020. FINDINGS: The visualized portions of the lung bases are clear. There are no pleural fluid collections. There is no free intraperitoneal air. The liver shows no focal lesion. The gallbladder is surgically absent. There is no biliary dilatation. The spleen, adrenals, pancreas, and kidneys appear unremarkable. There is no retroperitoneal mass or adenopathy. There is no ascites or abnormal fluid collection. The visualized bowel loops show no overt obstruction or focal bowel wall thickening. There is no pelvic mass or free fluid. There is no adnexal lesion. There is some inhomogeneity of the uterus. The appendix appears normal. IMPRESSION: No abdominal mass or abnormal fluid collection. The appendix appears normal. There is mild inhomogeneity of the uterus. This could be further investigated with sonography if clinically warranted. The patient has had previous cholecystectomy. There is no biliary dilatation. Dictated by: Dictated on workstation # [id number]
== END 2021-08-04 14:48 | disposition left against medical advice (07) ==
LOC: EDUNIT# 13:37 → ER FS 13:39
DX: R10.31 Right lower quadrant pain (principal); F17.210 Nicotine dependence, cigarettes, uncomplicated; Z98.51 Tubal ligation status; Z32.02 Encounter for pregnancy test, result negative
CPT/HCPCS: 36415; 74177; 80053; 81000; 83690; 84703; 85025; Q9967

== ENCOUNTER 2022-01-04 14:58 | Emergency (ER) | payer MEDICARE, MEDICAID ==
[~2022-01-04] VITALS: Ht 175 cm; Wt 97.6 kg
[2022-01-04] MEDS ORDERED: PANTOPRAZOLE 40 MG (PROTONIX) VIAL IV STA (15:11)
[2022-01-04] MEDS ORDERED: ONDANSETRON 4 MG/2 ML (SDV) Z0FRAN IVP STA (15:11)
[2022-01-04] MEDS ORDERED: KETOROLAC 30 MG/ML VIAL IVP STA (15:11)
[2022-01-04] MEDS ORDERED: NS IV 1000 ML 1,000 ML IV STA ×2 (15:11→15:41)
[2022-01-04 15:16] LABS: BASOPHILS % (AUTO) 0 % (0-10); EOSINOPHILS # (AUTO) 0.1 10^3/uL (0.0-0.3); EOSINOPHILS % (AUTO) 1 % (0-10); HEMATOCRIT 48 % (35-52); HEMOGLOBIN 17.2 g/dL (11.5-16.0); LYMPHOCYTES % (AUTO) 11 % (12-44); MEAN CORPUSCULAR HEMOGLOBIN 33 pg (25-34); MEAN CORPUSCULAR HGB CONC 36 g/dL (32-36); MEAN CORPUSCULAR VOLUME 92 fL (80-99); MEAN PLATELET VOLUME 10.7 fL (9.0-12.2); MONOCYTES # (AUTO) 0.5 10^3/uL (0.0-1.0); MONOCYTES % (AUTO) 6 % (0-12); NEUTROPHILS # (AUTO) 7.5 10^3/uL (1.8-7.8); NEUTROPHILS % (AUTO) 82 % (42-75); PLATELET COUNT 278 10^3/uL (130-400); WHITE BLOOD COUNT 9.1 10^3/uL (4.3-11.0)
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
[2022-01-04 15:18] LABS: BILIRUBIN,URINE 2+ (NEGATIVE); CLARITY,URINE CLEAR; COLOR,URINE YELLOW; GLUCOSE, URINE (UA) NEGATIVE (NEGATIVE); KETONES,URINE 2+ (NEGATIVE); LEUKOCYTE ESTERASE ,URINE NEGATIVE (NEGATIVE); NITRITE,URINE NEGATIVE (NEGATIVE); PROTEIN,URINE 1+ (NEGATIVE)
[2022-01-04 15:23] VITALS: BP 170/110
[2022-01-04 15:25] LABS: BACTERIA,URINE FEW /HPF; SQUAMOUS EPITHELIAL CELL,UR 25-50 /HPF; YEAST,URINE FEW /HPF
[2022-01-04 15:32] LABS: ALANINE AMINOTRANSFERASE 14 U/L (0-55); ALBUMIN 4.7 GM/DL (3.2-4.5); ALKALINE PHOSPHATASE 76 U/L (40-136); BILIRUBIN,TOTAL 0.6 MG/DL (0.1-1.0); BUN/CREATININE RATIO 16; CALCIUM 9.5 MG/DL (8.5-10.1); CARBON DIOXIDE 23 MMOL/L (21-32); CHLORIDE 100 MMOL/L (98-107); CREATININE SERUM 0.74 MG/DL (0.60-1.30); GFR ESTIMATED 105; GLUCOSE 114 MG/DL (70-105); POTASSIUM 3.6 MMOL/L (3.6-5.0); SODIUM 139 MMOL/L (135-145); TOTAL PROTEIN 8.2 GM/DL (6.4-8.2)
[2022-01-04 15:33] LABS: LIPASE 26 U/L (8-78)
[2022-01-04] MEDS ORDERED: ONDA4TAB11 PO (16:30)
== END 2022-01-04 16:34 | disposition home or self-care (01) ==
LOC: EDUNIT# 14:58 → ER FS 15:00
DX: K44.9 Diaphragmatic hernia without obstruction or gangrene (principal); K21.9 Gastro-esophageal reflux disease without esophagitis; E86.0 Dehydration; Z28.310 Unvaccinated for COVID-19
CPT/HCPCS: 36415; 80053; 81000; 83690; 84703; 85025

== ENCOUNTER 2022-01-31 08:05 | Emergency (ER) | payer MEDICARE, MEDICAID ==
[~2022-01-31] VITALS: Ht 162 cm; Wt 100.0 kg
[2022-01-31 08:25] LABS: BASOPHILS # (AUTO) 0.1 10^3/uL (0.0-0.1); BASOPHILS % (AUTO) 1 % (0-10); EOSINOPHILS # (AUTO) 0.3 10^3/uL (0.0-0.3); EOSINOPHILS % (AUTO) 4 % (0-10); HEMATOCRIT 46 % (35-52); HEMOGLOBIN 16.7 g/dL (11.5-16.0); LYMPHOCYTES # (AUTO) 1.4 10^3/uL (1.0-4.0); LYMPHOCYTES % (AUTO) 15 % (12-44); MEAN CORPUSCULAR HEMOGLOBIN 34 pg (25-34); MEAN CORPUSCULAR HGB CONC 36 g/dL (32-36); MEAN CORPUSCULAR VOLUME 93 fL (80-99); MEAN PLATELET VOLUME 10.7 fL (9.0-12.2); MONOCYTES # (AUTO) 0.6 10^3/uL (0.0-1.0); MONOCYTES % (AUTO) 6 % (0-12); NEUTROPHILS # (AUTO) 7.1 10^3/uL (1.8-7.8); NEUTROPHILS % (AUTO) 75 % (42-75); PLATELET COUNT 251 10^3/uL (130-400); WHITE BLOOD COUNT 9.4 10^3/uL (4.3-11.0)
[2022-01-31 08:27] LABS: BILIRUBIN,URINE NEGATIVE (NEGATIVE); COLOR,URINE YELLOW; GLUCOSE, URINE (UA) NEGATIVE (NEGATIVE); KETONES,URINE NEGATIVE (NEGATIVE); LEUKOCYTE ESTERASE ,URINE 2+ (NEGATIVE); NITRITE,URINE NEGATIVE (NEGATIVE); PROTEIN,URINE TRACE (NEGATIVE)
[2022-01-31 08:28] LABS: CLARITY,URINE CLOUDY
[2022-01-31 08:30] LABS: BACTERIA,URINE LARGE /HPF; SQUAMOUS EPITHELIAL CELL,UR >50 /HPF; WBC,URINE 50-100 /HPF
[2022-01-31] MEDS ORDERED: NS IV 1000 ML 1,000 ML IV SCH (08:30)
[2022-01-31] MEDS ORDERED: ONDANSETRON 4 MG/2 ML (SDV) Z0FRAN IVP ONE (08:30)
[2022-01-31] MEDS ORDERED: KETOROLAC 30 MG/ML VIAL IVP ONE ×2 (08:30→09:15)
[2022-01-31 08:44] LABS: ALBUMIN 4.5 GM/DL (3.2-4.5); BILIRUBIN,TOTAL 0.2 MG/DL (0.1-1.0); CALCIUM 9.5 MG/DL (8.5-10.1); CREATININE SERUM 0.75 MG/DL (0.60-1.30); POTASSIUM 4.1 MMOL/L (3.6-5.0); TOTAL PROTEIN 7.7 GM/DL (6.4-8.2)
--- NOTE | 2022-01-31 08:51 | Diagnostic Imaging Report ---
PROCEDURE: CT abdomen and pelvis without contrast. TECHNIQUE: Multiple contiguous axial images were obtained through the abdomen and pelvis without the use of intravenous contrast. Auto Exposure Controls were utilized during the CT exam to meet ALARA standards for radiation dose reduction. INDICATION: Right lower quadrant pain. Nausea and vomiting. COMPARISON: 08/04/2021. FINDINGS: The heart is unremarkable. The lung bases are clear. Small hiatal hernia is present. The liver, spleen, pancreas, adrenal glands, and kidneys have a normal noncontrast CT appearance. Punctate nonobstructing calculus is seen in the inferior pole of the left kidney measuring 2 mm. The gallbladder is surgically absent. There is no pathologically enlarged mesenteric or retroperitoneal adenopathy. There is wall thickening throughout the colon, greatest in the cecum and ascending colon. The bowel loops are nondilated. The appendix is visualized in the right lower quadrant and has a normal appearance. There is no free fluid or free air. No acute osseous abnormalities. Ureters and bladder are normal. There is no free air, loculated collection, or adenopathy in the pelvis. IMPRESSION: 1. Colon wall thickening, greatest in the cecum and ascending colon, suggestive of nonspecific colitis. Normal appendix. No bowel obstruction. No free fluid or free air. Dictated by: Dictated on workstation # [id number]
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
[2022-01-31] MEDS ORDERED: CIPR-226 PO (09:20)
[2022-01-31 09:21] VITALS: BP 178/131
== END 2022-01-31 09:30 | disposition home or self-care (01) ==
LOC: EDUNIT# 08:05 → ER FS 08:06
DX: N39.0 Urinary tract infection, site not specified (principal); K29.01 Acute gastritis with bleeding; K52.9 Noninfective gastroenteritis and colitis, unspecified; R74.8 Abnormal levels of other serum enzymes
CPT/HCPCS: 36415; 74176; 80053; 81000; 83690; 85025

== ENCOUNTER 2022-02-22 10:02 | Emergency (ER) | payer MEDICARE, MEDICAID ==
[~2022-02-22] VITALS: Ht 175.3 cm; Wt 96.6 kg
[~2022-02-22 10:02] MED LIST changes: +CIPR-226 PO
[2022-02-22 10:08] VITALS: BP 171/113
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
[2022-02-22] MEDS ORDERED: LACTATED RINGERS 1,000 ML IV STA (10:17)
[2022-02-22] MEDS ORDERED: FAMOTIDINE 20MG/2ML IV (PEPCID) IV STA (10:17)
[2022-02-22 10:22] LABS: BASOPHILS # (AUTO) 0.1 10^3/uL (0.0-0.1); BASOPHILS % (AUTO) 1 % (0-10); EOSINOPHILS # (AUTO) 0.1 10^3/uL (0.0-0.3); EOSINOPHILS % (AUTO) 1 % (0-10); HEMATOCRIT 50 % (35-52); HEMOGLOBIN 17.7 g/dL (11.5-16.0); LYMPHOCYTES # (AUTO) 1.5 10^3/uL (1.0-4.0); LYMPHOCYTES % (AUTO) 12 % (12-44); MEAN CORPUSCULAR HEMOGLOBIN 33 pg (25-34); MEAN CORPUSCULAR HGB CONC 36 g/dL (32-36); MEAN CORPUSCULAR VOLUME 93 fL (80-99); MEAN PLATELET VOLUME 10.7 fL (9.0-12.2); MONOCYTES # (AUTO) 0.6 10^3/uL (0.0-1.0); MONOCYTES % (AUTO) 5 % (0-12); NEUTROPHILS # (AUTO) 9.6 10^3/uL (1.8-7.8); NEUTROPHILS % (AUTO) 81 % (42-75); PLATELET COUNT 292 10^3/uL (130-400); WHITE BLOOD COUNT 11.9 10^3/uL (4.3-11.0)
[2022-02-22] MEDS ORDERED: ONDANSETRON 4 MG/2 ML (SDV) Z0FRAN IVP ONE (10:30)
[2022-02-22 10:41] LABS: GLUCOSE, URINE (UA) NEGATIVE (NEGATIVE); KETONES,URINE 1+ (NEGATIVE); LEUKOCYTE ESTERASE ,URINE TRACE (NEGATIVE); NITRITE,URINE NEGATIVE (NEGATIVE); PH,URINE 6.5 (5-9); PROTEIN,URINE 1+ (NEGATIVE)
[2022-02-22 10:46] LABS: BACTERIA,URINE MODERATE /HPF; BILIRUBIN,URINE 1+ (NEGATIVE); CLARITY,URINE CLOUDY; COLOR,URINE DARK YELLOW
[2022-02-22 10:56] LABS: ALANINE AMINOTRANSFERASE 25 U/L (0-55); ALKALINE PHOSPHATASE 84 U/L (40-136); BILIRUBIN,TOTAL 0.6 MG/DL (0.1-1.0); BUN/CREATININE RATIO 15; CALCIUM 10.1 MG/DL (8.5-10.1); CARBON DIOXIDE 23 MMOL/L (21-32); CHLORIDE 99 MMOL/L (98-107); CREATININE SERUM 0.84 MG/DL (0.60-1.30); GFR ESTIMATED 90; GLUCOSE 127 MG/DL (70-105); LIPASE 38 U/L (8-78); POTASSIUM 3.7 MMOL/L (3.6-5.0); SODIUM 139 MMOL/L (135-145); TOTAL PROTEIN 8.6 GM/DL (6.4-8.2)
[2022-02-22] MEDS ORDERED: KETOROLAC 30 MG/ML VIAL IVP STA (11:26)
[2022-02-22] MEDS ORDERED: ONDA4TAB11 PO (11:30)
[2022-02-22] MEDS ORDERED: SULF1TAB38 PO (11:30)
== END 2022-02-22 11:37 | disposition home or self-care (01) ==
LOC: EDUNIT# 10:02 → ER FS 10:03
DX: N30.91 Cystitis, unspecified with hematuria (principal); Z87.19 Personal history of other diseases of the digestive system; Z87.440 Personal history of urinary (tract) infections; Z28.310 Unvaccinated for COVID-19
CPT/HCPCS: 36415; 80053; 81000; 83690; 85025; 87088; 99282